=== PATIENT | male | born 1945 | race Hispanic/Latino ===

== ENCOUNTER 2018-10-02 05:57 | Day surgery (SDC) | payer OTHER, MEDICARE ==
[2018-09-30 15:47] VITALS: BP 138/70
[2018-09-30 15:56] LABS: BASOPHILS % (AUTO) 0.5 % (0.0-5.0); EOSINOPHILS % (AUTO) 1.7 % (0.0-8.0); HEMATOCRIT 43.8 % (42-54); LYMPHOCYTES % (AUTO) 20.2 % (21.0-51.0); MEAN CORPUSCULAR HEMOGLOBIN 30.1 pg (27.0-33.0); MEAN CORPUSCULAR HGB CONC 33.1 g/dL (32.0-36.0); MEAN CORPUSCULAR VOLUME 90.9 fL (79-99); MONOCYTES % (AUTO) 7.7 % (3.0-13.0); NEUTROPHILS % (AUTO) 69.9 % (40.0-77.0); NUCLEATED RED BLOOD CELLS 0.1 % (0.0-0.19); PLATELET COUNT (AUTO) 192 K/uL (130-400); RED BLOOD CELL COUNT(AUTO) 4.82 MIL/uL (4.50-6.20); RED CELL DISTRIBUTION WIDTH 14.2 % (11.0-15.5); WHITE BLOOD COUNT (AUTO) 6.5 K/uL (4.8-10.8)
[2018-09-30 16:06] LABS: CREATININE 0.9 mg/dL (0.5-1.5); POTASSIUM 3.9 mmol/L (3.5-5.1)
[~2018-10-02] VITALS: Ht 171.4 cm; Wt 77.4 kg
[2018-10-02] VITALS (13 sets, daily range): BP systolic 87–141; BP diastolic 51–81
[~2018-10-02 05:57] MED LIST: FINA5TAB41 PO; GLIM4TAB3 PO; METF-444 PO
[2018-10-02] MEDS ORDERED: LIDOCAINE PF 2% 5ML ABBOJECT ONE (07:23)
[2018-10-02] MEDS ORDERED: PROPOFOL 10 MG/ML 20ML VIAL IV ONE (07:23)
[2018-10-02] MEDS ORDERED: FENTANYL CITRATE PF 50 MCG/1 ML 2ML VIAL ONE (07:23)
[2018-10-02] MEDS ORDERED: SODIUM CHLORIDE 0.9% 1000ML 1,000 ML IV ONE (07:31)
[2018-10-02] MEDS: CEFTRIAXONE SODIUM 1 GM ONE ×2 (07:44→08:00)
[2018-10-02] MEDS ORDERED: FLUT1DIS4 IH (07:46)
[2018-10-02] MEDS ORDERED: SODIUM CHLORIDE 0.9% 10 ML VIAL ONE (08:16)
[2018-10-02] MEDS ORDERED: PHENYLEPHRINE HCL 10 MG/ML 1ML VIAL IV ONE (08:16)
[2018-10-02] MEDS ORDERED: EPHEDRINE SULFATE 50 MG/ML AMPULE ONE (08:28)
[2018-10-02] MEDS ORDERED: OPIUM/BELLADONNA ALKALOIDS 1 EACH SUPP.RECT RC ONE (09:09)
[2018-10-02] MEDS ORDERED: PHENAZOPYRIDINE HCL 200 MG TABLET ONE (10:16)
--- NOTE | 2018-10-02 10:45 | NUR ---
PT TOLERATED PROCEDURE WELL, NO C/O OF PAIN TO CABALLERO SITE, BAG PATENT AND DRAINING PROPERLY. PT ABLE TO TOLERATE FLUIDS, SON JOSE AT BEDSIDE FOR INSTRUCTION ON CABALLERO CARE HOW TO SWITCH OUT TO SMALL LEG BAG, PT GIVEN SUPPLIES TO CHANGE OUT CABALLERO BAG NEEDED AT HOME, PT AND SON BOTH VERBALIZED UNDERSTANDING. PT DRESSED AT BEDSIDE WITH ASSISTANCE, PLACED IN WHEELCHAIR AND DRIVEN HOME BY SON.
--- NOTE | 2018-10-02 10:58 | NUR ---
PRESCRIPTION GIVEN TO PT AND SON FOR MEDICATIONS AT HOME.
[2018-10-05] MEDS ORDERED: CEFTRIAXONE SODIUM 1 GM IVP SCH (06:00)
== END 2018-10-02 10:45 | disposition home or self-care (01) ==
LOC: DAH 05:57
PROVIDERS: ATTEND Urology
DX: N40.1 Benign prostatic hyperplasia with lower urinary tract symptoms (principal); R35.1 Nocturia; N32.0 Bladder-neck obstruction; N32.81 Overactive bladder; J44.9 Chronic obstructive pulmonary disease, unspecified; I25.10 Atherosclerotic heart disease of native coronary artery without angina pectoris; Z95.1 Presence of aortocoronary bypass graft; Z85.118 Personal history of other malignant neoplasm of bronchus and lung; E11.9 Type 2 diabetes mellitus without complications; Z79.899 Other long term (current) drug therapy; Z88.8 Allergy status to other drugs, medicaments and biological substances; Z87.891 Personal history of nicotine dependence; Z98.890 Other specified postprocedural states; R35.0 Frequency of micturition; K21.9 Gastro-esophageal reflux disease without esophagitis
CPT/HCPCS: 36415; 52648; 80048; 82948 ×2; 85025; 93005; A4218; A4344; A4354; A4358; A4510; A4600; J0696; J2001; J2370; J2704; J3010; J3490; J7030 ×2

== ENCOUNTER → 2023-10-03 | Outpatient (CLI) | payer OTHER, MEDICARE ==
[~2023-10-03] VITALS: Ht 170.2 cm; Wt 70.6 kg
[~2023-10-03] MED LIST changes: +ATOR40TA69 PO; +FLUT1DIS4 IH; -GLIM4TAB3 PO; +GLIM4TAB36 PO
[2023-10-03 11:40] LABS: BASOPHILS # (AUTO) 0.04 K/uL (0.00-0.20); BASOPHILS % (AUTO) 0.7 % (0.0-5.0); EOSINOPHILS # (AUTO) 0.07 K/uL (0.00-0.70); EOSINOPHILS % (AUTO) 1.2 % (0.0-8.0); HEMATOCRIT 44.3 % (42-54); IMMATURE GRANULOCYTE ABSOLUTE 0.02 K/uL (0-1); LYMPHOCYTES # (AUTO) 1.4 K/uL (1.0-4.8); LYMPHOCYTES % (AUTO) 23.2 % (21.0-51.0); MEAN CORPUSCULAR HGB CONC 31.8 g/dL (32.0-36.0); MEAN CORPUSCULAR VOLUME 94.3 fL (79-99); MONOCYTES # (AUTO) 0.6 K/uL (0.1-1.0); MONOCYTES % (AUTO) 9.6 % (3.0-13.0); PLATELET COUNT (AUTO) 203 K/uL (130-400); RED CELL DISTRIBUTION WIDTH 13.4 % (11.0-15.5); WHITE BLOOD COUNT (AUTO) 6.1 K/uL (4.8-10.8)
[2023-10-03 11:53] VITALS: BP 173/66; PULSE 73; RESP 16
[2023-10-03 11:54] LABS: INR 0.98 (0.85-1.15); PROTHROMBIN TIME 11.4 SEC (9.6-11.6)
[2023-10-03 11:56] LABS: PARTIAL THROMBOPLASTIN TIME 28.7 SEC (26.3-35.5)
[2023-10-03 14:30] LABS: CREATININE 0.9 mg/dL (0.5-1.5); POTASSIUM 4.4 mmol/L (3.5-5.1)
== END | disposition home or self-care (01) ==
LOC: DAH 10:00 → EDSTATUS 10-06 10:00
PROVIDERS: ATTEND Internal Medicine Cardiovascular Disease
DX: Z01.818 Encounter for other preprocedural examination (principal); I44.1 Atrioventricular block, second degree; I49.1 Atrial premature depolarization; I45.2 Bifascicular block; R06.02 Shortness of breath
CPT/HCPCS: 36415; 80048; 85025; 85610; 85730; 93005